=== PATIENT | female | born 1995 | race African-American/Black ===

== ENCOUNTER 2017-08-17 14:21 | Day surgery (SDC) | payer BC, OTHER ==
[2017-08-17 15:23] VITALS: BMI 33.2
--- NOTE | 2017-08-17 19:49 | PRG ---
DATE OF SERVICE: 08/17/2017 PRIMARY SPINNER FRAME: Mario Yuan DO CHIEF COMPLAINT: Abdominal pain. HISTORY OF PRESENT ILLNESS: The patient is a 22-year-old G3, P2 female with an intrauterine pregnanc y at 30 weeks' gestation who is presenting to Labor and Delivery with a 2-week history of upper abdom inal and upper bilateral pain that she describes as burning. The patient reports that this pain is w orse with trying to get out of bed, climbing stairs, getting in and out of car and standing on her fe et. She denies uterine contractions. She denies vaginal bleeding or leakage of fluid. She denies u rinary urgency or frequency. She denies nausea, vomiting, diarrhea, constipation. She reports that she has had a recent upper respiratory infection that has resolved. PAST MEDICAL HISTORY: 1. Asthma, for which she is on Singulair twice a day and albuterol daily. 2. 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 3. Hyperthyroidism, on methimazole. PAST SURGICAL HISTORY: Hip surgery and hip replacement. OB HISTORY: She has had 2 vaginal births at term, one was delivery of a twin gestation spontaneously , decreased to a stewart gestation with demise of one of the twins early in the . SOCIAL HISTORY: Denies drug, alcohol or tobacco use. OB LABS: Blood type is O negative, antibody screen is negative. RPR is nonreactive. HIV is nonreac tive. Hepatitis B surface antigen is nonreactive and rubella is immune. GC chlamydia was positive w ith a negative [id number]. Her one hour glucose was 94. She is GBS positive in her urine on initi al urine culture. REVIEW OF SYSTEMS: Per HPI. PHYSICAL EXAMINATION: VITAL SIGNS: Blood pressure 106/64, heart rate is 78, satting 98% on room air, temperature 97.8. GENERAL: She appears to be in no acute distress. She is alert and oriented, and cooperative and ple asant to interact with. HEENT: Normocephalic, atraumatic. CHEST: Clear to auscultation bilaterally. CARDIOVASCULAR: Heart has a regular rate and rhythm. ABDOMEN: Gravid, soft. She does have some tenderness with deviation of the uterus bilaterally. She also has some tenderness to palpation in the inguinal groin regions. EXTREMITIES: Nontender, nonedematous. GENITOURINARY: Has been deferred. heart tracing performed for abdominal pain, baseline is in the 150s with moderate long-term silvia iability with no accelerations, no decelerations. Tocometer does not show any contractions. A BPP w as performed for assessment and was noted to have 8/8. Cervical length is greater than 3 cm an d growth is appropriate. ASSESSMENT AND PLAN: The patient is a 29-year-old female with an intrauterine at 30 weeks and a day, who has been experiencing ligament related pain over the last couple of weeks. Reassuranc e has been given to the patient. She has an appointment on 08/[address] Yuan which she has been e ncouraged to keep. Patient is being discharged to home with labor precautions.
--- NOTE | 2017-08-17 20:37 | ULT ---
LIMITED OBSTETRICAL ULTRASOUND BIOPHYSICAL PROFILE 08/17/17 COMPARISON: None. HISTORY: 22-year-old female undergoing evaluation for size and dates/ growth. Nonreactive NST. TECHNIQUE: Multiplanar corea scale sonographic imaging of the gravid uterus obtained. A biophysical profile was p erformed. FINDINGS: A single intrauterine gestation is present with a vertex presentation. Cervical length is estimated a t 3.1 cm, which is an approximation secondary to shadowing from the head. heart rate is 147-149 beats per minute. anatomy was not fully assessed on this examination. Amniotic fluid in dex is 10.1 cm. Placenta is located anteriorly with no evidence for previa or abruption. BIOMETRY: BPD 7.7 cm 30 weeks, 6 days HC 28.4 cm 31 weeks, 1 day AC 26.1 cm 30 weeks, 2 days FL 5.6 cm 29 weeks, 4 days Average age based on ultrasound is 30 weeks, 4 days with estimated date of delivery on 10/22/17. Estimated weight is 1521 grams plus/minus 225 grams. The rate clerk passenger reports a 2 out of 2 score for tone, breathing, and movement. Amnio tic fluid scored 2 out of 2 for a normal biophysical profile of 8 out of 8. IMPRESSION: Single intrauterine gestation as detailed above. Normal 8 out of 8 biophysical profile. POS: [facility]
== END 2017-08-17 18:28 | disposition home or self-care (01) ==
LOC: L&D/OP 14:21
PROVIDERS: ATTEND Obstetrics & Gynecology
DX: O99.89 Other specified diseases and conditions complicating pregnancy, childbirth and the puerperium (principal); R10.10 Upper abdominal pain, unspecified; O99.52 Diseases of the respiratory system complicating childbirth; J45.909 Unspecified asthma, uncomplicated; O99.283 Endocrine, nutritional and metabolic diseases complicating pregnancy, third trimester; E03.9 Hypothyroidism, unspecified; Z3A.30 30 weeks gestation of pregnancy; Z79.899 Other long term (current) drug therapy; Z96.649 Presence of unspecified artificial hip joint
CPT/HCPCS: 76815; 76819

== ENCOUNTER 2017-08-24 18:18 | Day surgery (SDC) | payer BC, OTHER ==
[2017-08-24 19:17] VITALS: BP 124/67; TEMP 97.7; BMI 33.5
--- NOTE | 2017-08-24 19:37 | PDOC.LDHP ---
Labor and Delivery H&P Chief complaint: other (possible LOF) HPI: I was called by renetta from the [facility] clinic at 1715 that this patient had a positiveFFN today. Renetta was unsure if she was ruptured. Patient just arrived to L&D about 15 minutes ago and here for eval. She is a 22 year old at 31 weeks and 1 day with possible SROM at 0100. No CTX, no VB, good FM. No trauma. 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 Review of systems comdpleted and findings per HPI; no acute SOB. CX was closed at [facility] today (cervix checked after FFN). Current gestational age (weeks): 31 (1 day) Dating criteria: last menstrual period Grav: 4 Para: 2 Abnormal US findings: No Current medications: other (Asthma meds) Previous surgical history: other (Bilateral hip orthopedic surgery (left hip replacement, right pinned)) Allergies/Adverse Reactions: Allergies Allergy/AdvReac Type Severity Reaction Status Date / Time No Known Drug Allergies Allergy Verified 10/21/15 07:34 Social history: none - Physical Exam Vital signs reviewed and normal: yes General: NAD Heart: RRR Lungs: CTAB Abdomen: gravid Extremeties: no edema FHT: category 1 [place] contractions every: iritability - Vaginal Exam cm dilated: 0 (visually) Effacement: 0% - Assessment Threatened PTL at 31 weeks. HX Asthma and bilateral hip surgery. FFN positive at [facility]. - Plan Plan: observation in L&D (1. Sterile spec was negative by me 2. sent for record 3. FFN pos...no ctx now and no recent sex prior to FFN sample. Will check CX length. If CX normal, ok for outpatient follow up. CX visually closed by me and was closed at [facility]. 4. NST reactive 5. Clinically, may have vaginal jun...diflucan.)
[2017-08-24] MEDS ORDERED: Fluconazole 100 MG TAB PO SCH (20:00)
[2017-08-24 20:08] LABS: Amnisure Test No Membranes Rupture (No Rupture)
--- NOTE | 2017-08-24 20:18 | PDOC.EVN ---
Event Note - Event Note Event Note: FFN negative at 2015
--- NOTE | 2017-08-24 22:02 | ULT ---
ULTRASOUND OBSTETRICAL COMPLETE: Date: 08/24/17 Time: 8:30 p.m. HISTORY: 22-year-old female in 3rd trimester of . Maternal cervical length measurement requested. FINDINGS: number: [place]. lie: Cephalic. Maternal cervix: 2.5 cm. Placenta: Anterior. No placenta previa. Amniotic fluid volume: JOSEPH 14.5 cm. heart rate: 147 bpm The following anatomy is visualized, with no evidence of anomalies: Head, four chamber heart, stomach, kidneys, bladder, and spine. biometry: Head circumference (HC): 29.0 cm 32w 0d Biparietal diameter (BPD): 8.0 cm 32w 1d Abdominal circumference (AC): 28.2 cm 32w 2d Femur length (FL): 5,4 cm 28w 5d Average ultrasound age (AUA): 31w 2d Estimated date of delivery (RAVIN): 10/24/17 Last menstrual period (LMP): 01/18/17 Gestational age by LMP: 31w 1 d Estimated weight (EFW): 1709 g +/- 253 g (3 lb. 12 oz. +/- 9 oz.) IMPRESSION: 1. Live third trimester intrauterine gestation. 2. Estimated gestational age of 31 weeks, 3 days. 3. Cephalic lie. 4. Maternal cervix: 2.5 cm in length. DAGMAR Lewis POS: [facility]
[2017-08-25] MEDS ORDERED: Fluconazole 100 MG TAB PO SCH (09:00)
== END 2017-08-24 20:35 | disposition home or self-care (01) ==
LOC: L&D/OP 18:18
PROVIDERS: ATTEND Obstetrics & Gynecology
DX: O60.03 Preterm labor without delivery, third trimester (principal); O99.52 Diseases of the respiratory system complicating childbirth; J45.909 Unspecified asthma, uncomplicated; O99.283 Endocrine, nutritional and metabolic diseases complicating pregnancy, third trimester; Z3A.31 31 weeks gestation of pregnancy; Z79.899 Other long term (current) drug therapy; Z96.642 Presence of left artificial hip joint; Z96.7 Presence of other bone and tendon implants; Z34.93 Encounter for supervision of normal pregnancy, unspecified, third trimester
CPT/HCPCS: 76815; 82731; 84112

== ENCOUNTER 2017-09-15 19:02 | Inpatient (IN) | payer BC, OTHER ==
[2017-09-15 19:41] VITALS: BMI 35.3
[2017-09-15] MEDS ORDERED: LR / Pitocin 40 units/1000 ml 1,000 ML IV PRN (20:22)
[2017-09-15] MEDS ORDERED: Promethazine HCl 25 MG/ML VIAL IM PRN (20:22)
[2017-09-15] MEDS ORDERED: Lidocaine 1% (PF) 30 ML VIAL SC PRN (20:22)
[2017-09-15] MEDS ORDERED: Lactated Ringer's 1,000 ML IV SCH (20:30)
--- NOTE | 2017-09-15 21:29 | HP ---
DATE OF SERVICE: 09/15/2017 REASON FOR ADMISSION: Contractions at 34 to 35 weeks gestation. HISTORY OF PRESENT ILLNESS: Ms. Newell is a 22-year-old 4, para 2, AB 1 at 34 to 35 weeks who is seen at [facility] by Dr. Yuan and Dr. Arellano. She presents complaining of day or two of cont ractions. She denies rupture of membranes. She denies bleeding. Of note, she was observed in labor and delivery back in mid August with a positive fibronectin. OB AND BALLET DANCER HISTORY: G4, P2, previous history of disappearing twin, spontaneous vaginal deliveries x2 . No other complications. PAST MEDICAL HISTORY: Significant for hyperthyroidism and asthma. PAST SURGICAL HISTORY: Bilateral hip surgery. ALLERGIES: Denies. MEDICATIONS: Methimazole 10 mg p.o. q. day, vitamins. SOCIAL HISTORY: Denies tobacco, alcohol, or IV drug use. FAMILY HISTORY: Noncontributory. REVIEW OF SYSTEMS: Noncontributory. PHYSICAL EXAMINATION: GENERAL: Black female, in no acute distress. VITAL SIGNS: Afebrile, blood pressure 100/72, respirations 18, pulse 85. HEENT: Within normal limits. LUNGS: Clear to auscultation bilaterally. HEART: Regular rhythm. BREASTS: No masses bilaterally. ABDOMEN: Soft, nontender. Fundal height 34 cm. FHTs 130s to 140s. PELVIC: Vulva without lesions. Vagina without discharge. Cervix is fingertip, 50, -2, cephalic. EXTREMITIES: Without clubbing, cyanosis or edema. LABORATORY DATA: Positive fibronectin 2 weeks ago, we will not repeat at this time. Admit lab s, TSH, and free T4 are pending. HEART RATE TRACING: heart rate tracing reveals occasional uterine irritability versus co ntractions with a category 1 heart rate tracing. IMPRESSION: Possible early labor with a history of a positive fibronectin 2 weeks ago. The patient did not receive corticosteroids at that time. PLAN: Admission, corticosteroids, betamethasone 12 mg q.24 hours x2 doses, IV fluids, chec k thyroid functions, continue methimazole, obtain limited ultrasound study as patient had ultra sound on 08/24/2017, which was size equal to dates with an RAVIN of 10/24/2017, at that time, an EFW of 1709. Cervical length was 2.5 at that time.
[2017-09-15 21:36] LABS: Hemoglobin 9.8 g/dL (12.0-16.0); Mean Corpuscular HGB CONC 33.1 g/dL (32.0-36.0); Mean Corpuscular Hemoglobin 28.2 pg (27.0-31.0); Mean Corpuscular Volume 85.2 fl (81.0-99.0); Mean Platelet Volume 7.8 fL (7.4-10.4); Platelet Count 275 thou/uL (130-400); RBC Distribution Width 13.5 % (11.5-14.5); Red Blood Cell (RBC) Count 3.49 mill/uL (4.20-5.40); White Blood Cell (WBC) Count 9.7 thou/uL (4.8-10.8)
[2017-09-15] MEDS: Betamet Acet/Betamet Na Ph 30 MG/5 ML VIAL IM SCH (21:42)
[2017-09-15] MEDS: Methimazole 10 MG TAB PO SCH (21:42)
[2017-09-15] MEDS: Lactated Ringer's 1,000 ML IV SCH (21:54)
[2017-09-15 22:13] LABS: Syphilis Antibody Nonreactive (Nonreactive); Syphilis Antibody Index 0.04 S/CO (<1.00 Non-Reactive)
[2017-09-15 22:14] LABS: Free T4 (Free Thyroxine) 0.96 ng/dL (0.70-1.48)
[2017-09-15 22:15] LABS: Thyroid Stimulating Hormone 0.0103 uIU/mL (0.35-4.94)
--- NOTE | 2017-09-15 22:26 | ULT ---
ULTRASOUND OB FOLLOWUP 09/15/17 HISTORY: Questionable labor. Evaluate weight and position. COMPARISON: Ultrasound OB limited 08/24/17. TECHNIQUE: Real time corea scale and color evaluation of the gravid uterus. FINDINGS: Placenta is anterior. A single viable intrauterine with average ultrasound age 34 week, 5 d ay. Estimated delivery of 10/22/17. Estimated weight is 5 lb. 7 oz, 54th percentile. The position is vertex and the placenta is anterior. Heart rate is 130 beats per minute. Amniotic flu id index is 19.1 cm. Biparietal diameter: 34 week, 4 day, 8.59 cm. Head circumference: 35 week, 4 day, 31.69 cm. Abdominal circumference: 35 week, 0 day, 31.04 cm. Femur length: 33 week, 3 day, 6.49 cm. The sacrum, spine, diaphragm, kidneys, four chamber heart, stomach, are normal. IMPRESSION: Single viable intrauterine with estimated date of delivery of 10/22/17. The weight is 5 lb. 7 oz, 54th percentile. The fetus is in vertex position. POS: [facility]
[2017-09-16 01:10] LABS: HBSAg Index 0.23 S/CO (0-0.99); HIV (1/2) Antibody/Antigen Non-Reactive (NonReactive); HIV 1/2 INDEX 0.09 S/CO (<1.00); Hep B Surf Ag Non-Reactive S/CO (NonReactive)
[2017-09-16] MEDS: Ondansetron HCl/PF 4 MG/2 ML Vial IVP PRN ×2 (03:05→10:14)
[2017-09-16] MEDS: Lactated Ringer's 1,000 ML IV SCH ×2 (04:30→14:01)
--- NOTE | 2017-09-16 07:38 | PRG ---
DATE OF SERVICE: 09/16/2017 TIME OF SERVICE: 0700 SUBJECTIVE: The patient is resting comfortably. Vital signs are stable. Contractions have disappea red. Ultrasound was reviewed, which revealed a fetus with cephalic presentation, 5 pounds 7 ounces e stimated weight. No gross abnormalities were noted on follow up ultrasound. LABORATORY DATA: Revealed a low TSH, but a normal Free T4, otherwise unremarkable. IMPRESSION: cervical dilatation at 35 weeks gestation without evidence of labor stat us post first dose of betamethasone, second of betamethasone to be administered approximately 2029 ho urs on 09/16/2017. PLAN: Continue observation status. Plan to discharge home after second dose of betamethasone if no change in patient's condition.
[2017-09-16] MEDS: Methimazole 10 MG TAB PO SCH (09:48)
--- NOTE | 2017-09-16 12:14 | PDOC.LDPN ---
Labor & Delivery Progress Note - Objective Vital signs reviewed and normal: yes General: NAD Uterine fundus: non tender [place] contractions every: only irritability - Assessment (1) Threatened labor, antepartum Code(s): O47.00 - FALSE LABOR BEFORE 37 COMPLETED WEEKS OF GEST, UNSP TRI Current Visit: Yes Status: Acute Plan: continue plan of care (Patient recieving celestone for FLM. Was 1 cm on admit. AME45-16 weeks. HX FFN pos 2 weeks age. Consider outpatient follow up after second Celestone as no evidence true progressive PTL at this time. )
--- NOTE | 2017-09-16 15:37 | PDOC.LDPN ---
Labor & Delivery Progress Note - Objective Vital signs reviewed and normal: yes General: NAD Uterine fundus: non tender - Assessment (1) Threatened labor, antepartum Code(s): O47.00 - FALSE LABOR BEFORE 37 COMPLETED WEEKS OF GEST, UNSP TRI Current Visit: Yes Status: Acute Plan: continue plan of care ([place]ashaestone #2 this PM (2099), likely home tomorrow AM. No evidence true PTL at this time. )
[2017-09-16] MEDS: Betamet Acet/Betamet Na Ph 30 MG/5 ML VIAL IM SCH (21:16)
--- NOTE | 2017-09-17 06:44 | PDOC.LDPN ---
Labor & Delivery Progress Note - Objective Vital signs reviewed and normal: yes General: NAD Uterine fundus: non tender - Assessment (1) Threatened labor, antepartum Code(s): O47.00 - FALSE LABOR BEFORE 37 COMPLETED WEEKS OF GEST, UNSP TRI Current Visit: Yes Status: Acute -: S/P celestone X2. No evidence true labor. OK for outpatient care. EGA 34 wks 4 days.
--- NOTE | 2017-09-17 06:46 | PDOC.EVN ---
Event Note - Event Note Event Note: Discharge Note: Admit: 09/16/17 Discharge: 09/17/17 Diagnoses: Threatened labor at 34 weeks Procedures: NST Celestone administration for FLM Patient admitted by Dr villanueva on 09/16/17 at 1 cm with threatened labor, HX FFN positive 2 weeks ago. Admitted for celestone 12mg IM x2 (24 hours apart) . Home on 09/17/17 with DX of arrested threatened PTL. Cat 1 FHTs. Patient to follow up in 1 week.
[2017-09-17 08:00] VITALS: TEMP 98.4
[2017-09-17 08:02] VITALS: BP 118/60
== END 2017-09-17 08:05 | disposition home health service (06) | DRG 778 ==
LOC: L&D/OP 19:02 → L&D 09-16 05:09
PROVIDERS: ADMIT Obstetrics & Gynecology; ATTEND Obstetrics & Gynecology
PROC: 4A0HXCZ Measurement of Products of Conception, Cardiac Rate, External Approach (ICD-10-PCS; principal; 2017-09-16)
DX: O60.03 Preterm labor without delivery, third trimester (principal); O36.8130 Decreased fetal movements, third trimester, not applicable or unspecified; Z3A.34 34 weeks gestation of pregnancy
CPT/HCPCS: 76816; 84439; 84443; 85027; 86780; 87340; 87389; 99285; J0702; J2405

== ENCOUNTER 2017-10-14 18:59 | Day surgery (SDC) | payer OTHER, BC ==
[2017-10-14 19:26] VITALS: BP 126/77; TEMP 98.6; BMI 35.5
--- NOTE | 2017-10-14 23:59 | SS ---
DATE OF EVALUATION: 10/24/2017 REGULAR OB: Kathleen Ching D.O. CHIEF COMPLAINT: Contractions. HISTORY OF PRESENT ILLNESS: Ms. Newell is a 22-year-old G4, P2-0-1-2 with an estimated date of confinement of 10/25/2017 who presents complaining of intermittent contractions since earlier this evening. She denies ruptured membranes or vaginal bleeding. She has been followed at [facility] by Dr. Ching and is scheduled for an induction on . PAST OBSTETRICAL HISTORY: Remarkable for 2 vaginal deliveries. PAST MEDICAL HISTORY: Unremarkable. PAST SURGICAL HISTORY: Includes a surgery to her hips. CURRENT MEDICATIONS: vitamins. SOCIAL HISTORY: Denies tobacco or alcohol use. REVIEW OF SYSTEMS: Denies fever, chills, ruptured membranes or vaginal bleeding. PHYSICAL EXAMINATION: Denies nausea, vomiting, fever, chills, ruptured membranes or vaginal bleeding. PHYSICAL EXAMINATION: VITAL SIGNS: Stable. She is afebrile. ABDOMEN: Soft, gravid and nontender. PELVIC: Shows the cervix to be 3 cm dilated with the presenting part high. The patient states that this was her exam in clinic last week. heart rate tracing is stable. Intermittent contractions are seen. Patient's observed over 2 hours and there is no cervical change and her contractions are noted to space out. ASSESSMENT: 1. A 38-1/2 week intrauterine . 2. No evidence of active labor at this time, no cervical change. PLAN: The patient was sent home with precautions. She understands that she is to return quickly should her contractions get closer together. She was given complete labor precautions and was sent home in good condition. JOSEPHINE
== END 2017-10-14 21:40 | disposition home or self-care (01) ==
LOC: L&D/OP 18:59
PROVIDERS: ATTEND Obstetrics & Gynecology
DX: O47.1 False labor at or after 37 completed weeks of gestation (principal); Z3A.38 38 weeks gestation of pregnancy; Z79.899 Other long term (current) drug therapy; Z98.890 Other specified postprocedural states
CPT/HCPCS: 99283

== ENCOUNTER 2017-10-18 06:18 | Inpatient (IN) | payer BC, OTHER ==
[2017-10-18] MEDS: Lactated Ringer's 1,000 ML IV SCH ×2 (07:05→12:42)
[2017-10-18 07:12] VITALS: BMI 35.5
[2017-10-18] MEDS ORDERED: HYDROcodone/Acetaminophen 5/325 mg Tablet PO PRN (07:13)
[2017-10-18] MEDS ORDERED: Promethazine HCl 25 MG/ML VIAL IM PRN ×2 (07:13→10:50)
[2017-10-18] MEDS ORDERED: Misoprostol 200 MCG TAB PR PRN (07:13)
[2017-10-18] MEDS ORDERED: Acetaminophen 500 MG TAB PO PRN (07:13)
[2017-10-18] MEDS ORDERED: Ondansetron HCl/PF 4 MG/2 ML Vial IVP PRN ×2 (07:13→10:50)
[2017-10-18] MEDS ORDERED: Lidocaine 1% (PF) 30 ML VIAL SC PRN (07:13)
[2017-10-18] MEDS ORDERED: Methylergonovine 0.2 MG/ML VIAL IM PRN (07:13)
[2017-10-18] MEDS ORDERED: Ibuprofen 800 MG TAB PO PRN (07:13)
[2017-10-18] MEDS ORDERED: LR 500 ML/Oxytocin 10 units 500 ML IV SCH (07:15)
[2017-10-18] MEDS ORDERED: Penicillin G Potassium 5 MILL.UNITS in Sodium Chloride 0.9% 100 ML IVPB SCH (07:15)
[2017-10-18 07:25] LABS: Hemoglobin 10.3 g/dL (12.0-16.0); Mean Corpuscular HGB CONC 33.5 g/dL (32.0-36.0); Mean Corpuscular Hemoglobin 27.7 pg (27.0-31.0); Mean Corpuscular Volume 82.7 fl (81.0-99.0); Platelet Count 270 thou/uL (130-400); RBC Distribution Width 14.3 % (11.5-14.5); Red Blood Cell (RBC) Count 3.71 mill/uL (4.20-5.40); White Blood Cell (WBC) Count 8.2 thou/uL (4.8-10.8)
[2017-10-18 08:04] LABS: Syphilis Antibody Nonreactive (Nonreactive); Syphilis Antibody Index 0.04 S/CO (<1.00 Non-Reactive)
[2017-10-18 08:05] LABS: HBSAg Index 0.23 S/CO (0-0.99); HIV (1/2) Antibody/Antigen Non-Reactive (NonReactive); Hep B Surf Ag Non-Reactive S/CO (NonReactive)
--- NOTE | 2017-10-18 08:20 | PDOC.LDHP ---
Labor and Delivery H&P Chief complaint: scheduled induction HPI: 22 yo @ 39wod by 11 week sono who presents for elective IOL. Antepartum course complicated by controlled hyperthyroidism on methimizole and controlled asthma. GBS+. Current gestational age (weeks): 39 Due date: 10/25/17 Dating criteria: first trimester ultrasound Grav: 4 Para: 2 OB History Details: 2 SVDs, 1 SAB Current complications: none, other Abnormal US findings: No Past Medical History: Hyperthyroidism, asthma, arthritis Current medications: pre-jania vitamins, other (methimizole 5 mg BID, albuterol PRN) Previous surgical history: other (left hip replacement) Allergies/Adverse Reactions: Allergies Allergy/AdvReac Type Severity Reaction Status Date / Time No Known Drug Allergies Allergy Verified 10/14/17 19:19 Social history: none - Physical Exam Vital signs reviewed and normal: yes General: NAD Heart: RRR Lungs: nonlabored breathing Abdomen: gravid Extremeties: no edema FHT: category 1 (140s, mod silvia, +accels, no decels) [place] contractions every: irregular - Vaginal Exam cm dilated: 3 Effacement: 50% Station: -2 - OB Labs Blood type: O RH: negative Antibody Screen: negative HIV: negative RPR: negative HEPSAg: negative 1 hour GCT: negative GBS: positive Urine drug screen: not done Rubella: immune Additional Labs: SSQ neg TSH 0.19, T4 wnl + CT and trichomonas (treated) - Assessment 22 yo @ 39w0d Elective IOL Hyperthyroidism Asthma GBS+ H/O left hip replacement - Plan Plan: admit to L&D, GBS antibiotic prophylaxis, informed consent obtained, anesthesia consult for pain management -: Start pitocin for induction Continue Methimizole
[2017-10-18] MEDS: Penicillin G 2.5 MILL.units 2.5 MILL.UNITS in Premix Bag 1 BAG IVPB SCH ×3 (09:54→16:03)
[2017-10-18] MEDS ORDERED: Bupivacaine 0.5% 20 ML, Fentanyl 400 MCG in Sodium Chloride 0.9% 72 ML EPIDURAL SCH ×2 (10:00→15:45)
[2017-10-18] MEDS ORDERED: Eucerin (Mineral Oil/Petrolatum,White) 30 gm Jar TOP PRN (10:50)
[2017-10-18] MEDS ORDERED: ePHEDrine/0.9% NaCl/PF SYRINGE 50 mg/10 ml SLOW IVP PRN (10:50)
[2017-10-18] MEDS ORDERED: Lactated Ringer's 500 ML IV PRN (10:50)
[2017-10-18] MEDS ORDERED: diphenhydrAMINE 50 MG/ML VIAL IVP PRN (10:50)
[2017-10-18] MEDS ORDERED: Acetaminophen 325 MG TAB PO PRN (10:50)
[2017-10-18] MEDS ORDERED: Naloxone HCl 0.4 mg/ml Vial IVP PRN ×2 (10:50)
[2017-10-18] MEDS ORDERED: Fentanyl 4mcg/Marcaine 0.1% Cassette 100 ML EPIDURAL SCH (11:00)
[2017-10-18] MEDS ORDERED: Communication Order-Pharmacy FS SCH (11:00)
--- NOTE | 2017-10-18 12:38 | PDOC.LDPN ---
Labor & Delivery Progress Note - Subjective Subjective: comfortable - Objective Vital signs reviewed and normal: yes General: NAD Uterine fundus: non tender Dilation: 4 Effacement: 50% Station: -2 FHT: category 2 (140s, mod silvia, +accels, occasional variable decel ) [place] contractions every: q3 min AROM: clear fluid - Assessment (1) 39 weeks gestation of Code(s): Z3A.39 - 39 WEEKS GESTATION OF Current Visit: Yes Status : Acute (2) Elective induction of labor planned Code(s): BZQ0080 - Current Visit: Yes Status: Acute (3) Hyperthyroidism Code(s): E05.90 - THYROTOXICOSIS, UNSP WITHOUT THYROTOXIC CRISIS OR STORM Current Visit: Yes Status: Acute (4) Group B streptococcal carriage complicating Code(s): O99.820 - STREPTOCOCCUS B CARRIER STATE COMPLICATING Current Visit: Yes Status: Acute Plan: continue plan of care, pitocin for augmentation
--- NOTE | 2017-10-18 17:05 | PDOC.LDPN ---
Labor & Delivery Progress Note - Subjective Subjective: comfortable - Objective Vital signs reviewed and normal: yes General: NAD Uterine fundus: non tender Dilation: 5 Effacement: 90% Station: -2 FHT: category 1 (120s, mod silvia, +accels, no decels ) [place] contractions every: q2-3 min - Assessment (1) 39 weeks gestation of Code(s): Z3A.39 - 39 WEEKS GESTATION OF Current Visit: Yes Status : Acute (2) Elective induction of labor planned Code(s): QGW9696 - Current Visit: Yes Status: Acute (3) Hyperthyroidism Code(s): E05.90 - THYROTOXICOSIS, UNSP WITHOUT THYROTOXIC CRISIS OR STORM Current Visit: Yes Status: Acute (4) Group B streptococcal carriage complicating Code(s): O99.820 - STREPTOCOCCUS B CARRIER STATE COMPLICATING Current Visit: Yes Status: Acute -: Continue to increase pitocin, inadequate MVUs for the last few hours. IUPC in place Continue GBS PPX
[2017-10-18] MEDS ORDERED: LR / Pitocin 40 units/1000 ml 1,000 ML ONE (18:36)
[2017-10-18] MEDS ORDERED: Lidocaine 1% (PF) 30 ML VIAL ONE (18:36)
[2017-10-18] MEDS: LR / Pitocin 40 units/1000 ml 1,000 ML IV PRN ×2 (19:30→20:43)
--- NOTE | 2017-10-18 19:58 | PDOC.OPDEL ---
OB Operative/Delivery Note Delivery Dr/Surgeon: Kathleen Ching DO Pre-Delivery Diagnosis: elective induction Procedure/Post Delivery Dx: spontaneous vaginal delivery Weeks gestation: 39 Anesthesia: epidural - Findings A Sex: female - 1 min: 9 - 5 min: 9 - Additional Findings/Plan Placenta delivered: spontaneous Repaired Obstetrical Laceration: other (superficial periurethral and hymenal laceration) Estimated blood loss: 250 cc Post delivery plan: routine recovery
[2017-10-18] MEDS: Methimazole 5 MG TAB PO SCH (20:43)
[2017-10-18] MEDS ORDERED: Bisacodyl 10 MG SUPP PR PRN (21:58)
[2017-10-18] MEDS ORDERED: traMADol HCl 50 MG TAB PO PRN (21:58)
[2017-10-18] MEDS ORDERED: LR / Pitocin 40 units/1000 ml 1,000 ML IV SCH (21:58)
[2017-10-18] MEDS ORDERED: Milk Of Magnesia 30 ML UDCUP PO PRN (21:58)
[2017-10-18] MEDS ORDERED: diphenhydrAMINE 25 MG CAP PO PRN (21:58)
[2017-10-18] MEDS ORDERED: Benzocaine/Menthol 20-0.5% 60 ML CAN TOP PRN (21:58)
[2017-10-18] MEDS ORDERED: Docusate Calcium (SURFAK) 240 MG CAP PO SCH (22:15)
[2017-10-18] MEDS: Ibuprofen 800 MG TAB PO SCH (22:39)
[2017-10-18] MEDS: Docusate Calcium (SURFAK) 240 MG CAP PO SCH (22:39)
[2017-10-19 05:28] LABS: Hemoglobin 9.1 g/dL (12.0-16.0); Mean Corpuscular Volume 84.3 fl (81.0-99.0); Mean Platelet Volume 8.2 fL (7.4-10.4); Platelet Count 240 thou/uL (130-400); RBC Distribution Width 14.2 % (11.5-14.5); Red Blood Cell (RBC) Count 3.36 mill/uL (4.20-5.40); White Blood Cell (WBC) Count 8.9 thou/uL (4.8-10.8)
[2017-10-19] MEDS: Ibuprofen 800 MG TAB PO SCH ×3 (06:13→21:26)
--- NOTE | 2017-10-19 07:23 | PDOC.PP ---
Post Progress Note Post Day #: 1 Subjective: No complaints. Minimal lochia. Pain controlled. transferred to NICU due to hyperbilirubinemia. Formula feeding. PO intake tolerated: yes Flatus: yes Ambulation: yes Vital Signs (12 hours) Temp Pulse Resp BP BP Pulse Ox 10/19/17 05:00 97.6 F 81 18 114/61 10/19/17 00:30 97.9 F 88 20 117/61 10/18/17 22:50 98.0 F 78 20 122/66 10/18/17 21:52 97.9 F 80 18 10/18/17 21:50 97.9 F 80 18 120/64 99 Weight Weight 220 lb - Physical Examination General: NAD Cardiovascular: RRR Respiratory: non-labored breathing Abdominal: no distention, appropriately TTP Fundus firm & at: below umbilicus Extremities: negative homans (B) Neurological: no gross focal deficits Psychiatric: A&Ox3 Result Diagrams: 10/19/17 04:56 Additional Labs: Post Labs Blood Type O NEGATIVE 10/18/17 07:05 Hep Bs Antigen Non-Reactive S/CO (NonReactive) 10/18/17 07:05 (1) 39 weeks gestation of Code(s): Z3A.39 - 39 WEEKS GESTATION OF Status: Resolved (2) Elective induction of labor planned Code(s): [id number] - Status: Resolved (3) Hyperthyroidism Code(s): E05.90 - THYROTOXICOSIS, UNSP WITHOUT THYROTOXIC CRISIS OR STORM Status: Acute (4) Group B streptococcal carriage complicating Code(s): O99.820 - STREPTOCOCCUS B CARRIER STATE COMPLICATING Status : Resolved (5) Anemia Code(s): D64.9 - ANEMIA, UNSPECIFIED Status: Acute Qualifiers: Anemia type: iron deficiency (6) Vaginal delivery Code(s): O80 - ENCOUNTER FOR FULL-TERM UNCOMPLICATED DELIVERY Status: Acute - Assessment/Plan Doing well post . transferred to NICU for phototherapy and will require stay overnight. Plan for d/c home tomorrow. Continue Methimizole
[2017-10-19] MEDS: Prenatal Vitamin 1 TAB PO SCH (08:10)
[2017-10-19] MEDS: Docusate Calcium (SURFAK) 240 MG CAP PO SCH ×2 (08:10→21:26)
[2017-10-19] MEDS: Methimazole 5 MG TAB PO SCH ×2 (08:10→21:27)
[2017-10-19] MEDS: Ferrous Sulfate 325 MG TAB PO SCH ×2 (08:10→17:27)
[2017-10-19] MEDS: Penicillin G 2.5 MILL.units 2.5 MILL.UNITS in Premix Bag 1 BAG IVPB SCH (09:55)
[2017-10-19 21:02] VITALS: TEMP 98.4
[2017-10-20] MEDS: Ibuprofen 800 MG TAB PO SCH ×2 (05:52→14:07)
--- NOTE | 2017-10-20 08:39 | DIS ---
DATE OF ADMISSION: 10/18/2017 DATE OF DISCHARGE: 10/20/2017 ADMITTING DIAGNOSES: Intrauterine at 39 weeks for elective induction of labor, complicated by hyperthyroidism and asthma. DISCHARGE DIAGNOSES: Intrauterine at 39 weeks for elective induction of labor, complicated by hyperthyroidism and asthma. PROCEDURE: Term spontaneous vaginal delivery. CONSULTATIONS: None. HOSPITAL COURSE: The patient is a 22-year-old female, who presented at 39 weeks gestation for electi ve induction of labor, which resulted in a term spontaneous vaginal delivery. Her course has been uncomplicated. She reports she is tolerating p.o., voiding on her own, having good pain con trol and decreased lochia. Her most recent vitals signs, blood pressure is 112/65, temperature 98.4, pulse of 85, respiratory rate of 16. In general, she appears to be in no acute distress. She is al ert and oriented, and cooperative and pleasant to interact with. Fundus is firm. Extremities are no ntender and nonedematous. The patient will be discharged to home with ibuprofen p.r.n. for pain control. She has instructions to follow up with Dr. Ching in 6 weeks. She has instructions to seek medical attention sooner if sh e experiences increasing pain or bleeding or fever.
[2017-10-20 09:09] VITALS: BP 107/67
[2017-10-20] MEDS: Docusate Calcium (SURFAK) 240 MG CAP PO SCH (09:31)
[2017-10-20] MEDS: Prenatal Vitamin 1 TAB PO SCH (09:31)
[2017-10-20] MEDS: Ferrous Sulfate 325 MG TAB PO SCH (09:31)
[2017-10-20] MEDS: Methimazole 5 MG TAB PO SCH (09:32)
== END 2017-10-20 16:44 | disposition home or self-care (01) | DRG 775 ==
LOC: L&D 06:18 → UNDOADMIN 06:18 → 3SW 21:50
PROVIDERS: ADMIT Obstetrics & Gynecology; ATTEND Obstetrics & Gynecology
PROC: 10E0XZZ Delivery of Products of Conception, External Approach (ICD-10-PCS; principal; 2017-10-19)
DX: O99.284 Endocrine, nutritional and metabolic diseases complicating childbirth (principal); D50.8 Other iron deficiency anemias; O70.0 First degree perineal laceration during delivery; Z3A.39 39 weeks gestation of pregnancy; Z37.0 Single live birth; O99.824 Streptococcus B carrier state complicating childbirth; O99.02 Anemia complicating childbirth; J45.909 Unspecified asthma, uncomplicated; Z96.649 Presence of unspecified artificial hip joint
CPT/HCPCS: 36415; 51702; 85027; 85461; 86780; 86850; 86900; 86901; 87340; 87389; 90384; 96372; J2001; J2405; J2540; J2550; J3010; J3490; J7050; J7120

== ENCOUNTER 2018-11-12 12:57 | Outpatient (CLI) | payer BC, OTHER ==
--- NOTE | 2018-11-12 14:17 | ULT ---
OB ULTRASOUND COMPLETE GREATER THAN 14 WEEKS: HISTORY: High risk in the third trimester, anatomy. FINDINGS: Single viable intrauterine fetus is noted in cephalic presentation. Cervical length equals 3.2 cm. heart rate 160 b.p.m. Placenta is posterior. Amniotic fluid is within normal limits. The visualized brain, 4-chambert heart, 3-vessel cord, stomach, bladder, kidneys, spine, and ex tremity regions are unremarkable. Biometry: BPD 5.6 cm-22 weeks 0 days Head circumference 21.3 cm-23 weeks 3 days Abdominal circumference 19.6 cm-24 weeks 2 days Femur length 4 cm-22 weeks 5 days IMPRESSION: Single viable intrauterine fetus at 23 weeks 1 day with an estimated date of confinement of 03/10/2019. Estimated weight 609 gm. POS: [facility]
== END 2018-11-12 12:58 | disposition home or self-care (01) ==
LOC: SCSULT 12:57
PROVIDERS: ATTEND Nurse Practitioner
DX: O09.93 Supervision of high risk pregnancy, unspecified, third trimester (principal)
CPT/HCPCS: 76805

== ENCOUNTER 2018-12-13 14:16 | Outpatient (CLI) | payer BC, MEDICAID ==
--- NOTE | 2018-12-13 15:15 | ULT ---
OB ULTRASOUND: COMPARISON: 11/12/2018. HISTORY: female. Evaluate size, dates, growth, and JOSEPH. TECHNIQUE: Multiplanar, corea scale, and color Doppler images were obtained in a limited ultrasound. FINDINGS: There is a single live intrauterine with a heart rate of 141 b.p.m. Estimated weight is 1,108 gm, which is the 25th percentile. Average of the fetus based off today's examination is 27 weeks 4 days. The following measurements were taken and dates based off these measurements are as f romeo. BPD 6.85 cm, 27 weeks 4 days HC 24.95 cm, 27 weeks 1 day AC 23.35 cm, 27 weeks 5 days FL 5.22 cm, 27 weeks 6 days JOSEPH 16.4 cm, which is normal. The placenta is posterior in location without evidence of placenta pre via. The cervix is not able to be seen secondary to the head which is in cephalic presentation . IMPRESSION: Single live intrauterine with estimated age of 27 weeks 4 days. POS: [facility]
== END 2018-12-13 14:17 | disposition home or self-care (01) ==
LOC: SCSULT 14:16
PROVIDERS: ATTEND Obstetrics & Gynecology
DX: Z34.83 Encounter for supervision of other normal pregnancy, third trimester (principal); Z3A.27 27 weeks gestation of pregnancy
CPT/HCPCS: 76816

== ENCOUNTER 2019-02-17 11:56 | Day surgery (SDC) | payer BC, OTHER ==
[2019-02-17 12:49] VITALS: BMI 41.0
--- NOTE | 2019-02-17 14:26 | SS ---
DATE OF ADMISSION: 02/17/2019 DATE OF DISCHARGE: 02/17/2019 TIME OF SERVICE: 1315. PRESENTING COMPLAINT: Contractions and abdominal pain at 38 weeks. HISTORY OF PRESENT ILLNESS: Ms. Paola Newell is a 23-year-old 4, para 3, with an EDC of 03/01. She is O negative, antibody negative, Pap negative, rubella immune, VDRL nonreactive, group B strep not available. She complains of abdominal pain for about 6 hours. She denies rupture of membranes or bleeding. She reports an active fetus. [employer]ACHINE HISTORY: As noted. PAST SURGICAL HISTORY: Denies. PAST MEDICAL HISTORY: Hyperthyroidism. ALLERGIES: NONE. MEDICATIONS: 1. Methimazole. 2. Albuterol. 3. Advair. 4. vitamins. SOCIAL HISTORY: Denies tobacco, alcohol, or drug use. FAMILY HISTORY: Noncontributory. REVIEW OF SYSTEMS: Noncontributory. PHYSICAL EXAMINATION: GENERAL: White female. VITAL SIGNS: Blood pressure 131/81, pulse 86, respirations 20, and temperature 98.3. HEENT: Within normal limits. LUNGS: Clear to auscultation bilaterally. HEART: Regular rate and rhythm. ABDOMEN: Soft and nontender without palpable contractions. Vulva without lesions. Vaginal exam by RN reveals cervix is 125 and -2 cephalic. EXTREMITIES: Without clubbing, cyanosis, or edema. LABORATORY DATA: monitoring was carried out for greater than 30 minutes, which revealed a category 1 tracing. No decelerations. Positive accelerations. No significant contractions noted. IMPRESSION: Discomforts of . No evidence of active labor. PLAN: Discharge home. Keep scheduled followup with Dr. Neha Garcia. Job ID: [id number]
== END 2019-02-17 13:36 | disposition home health service (06) ==
LOC: L&D/OP 11:56
PROVIDERS: ATTEND Obstetrics & Gynecology
DX: O26.893 Other specified pregnancy related conditions, third trimester (principal); R10.9 Unspecified abdominal pain; O99.283 Endocrine, nutritional and metabolic diseases complicating pregnancy, third trimester; E05.90 Thyrotoxicosis, unspecified without thyrotoxic crisis or storm; Z3A.38 38 weeks gestation of pregnancy; Z79.899 Other long term (current) drug therapy
CPT/HCPCS: 99283

== ENCOUNTER 2019-02-24 05:30 | Inpatient (IN) | payer BC, OTHER ==
[~2019-02-24 05:30] MED LIST: Butorphanol Tartrate 1 MG/ML VIAL SLOW IVP PRN; Docusate 100 MG CAP PO PRN; HYDROcodone/Acetaminophen 5/325 mg Tablet PO PRN; Ibuprofen 800 MG TAB PO PRN; Lidocaine 1% (PF) 30 ML VIAL SC PRN; NS / Oxytocin 40 units/1000ml 1,000 ML IV PRN; Ondansetron PF 4 MG/2 ML Vial IVP PRN; Promethazine HCl 25 MG/ML VIAL IM PRN; Zolpidem Tartrate 5 MG TAB PO PRN
[2019-02-24 06:40] VITALS: BMI 40.8
[2019-02-24] MEDS: Lactated Ringer's 1,000 ML IV SCH ×2 (06:50→15:46)
[2019-02-24] MEDS: NS w/ Oxytocin 10 units 500 ML IV SCH ×2 (07:03→17:57)
[2019-02-24 07:04] LABS: Hemoglobin 10.1 g/dL (12.0-16.0); Mean Corpuscular HGB CONC 32.8 g/dL (32.0-36.0); Mean Corpuscular Hemoglobin 27.4 pg (27.0-31.0); Mean Corpuscular Volume 83.6 fL (78.0-98.0); Platelet Count 240 thou/uL (130-400); RBC Distribution Width 13.8 % (11.5-14.5); Red Blood Cell (RBC) Count 3.69 mill/uL (4.20-5.40); White Blood Cell (WBC) Count 8.9 thou/uL (4.8-10.8)
[2019-02-24] MEDS ORDERED: Penicillin G Potassium 5 MILL.UNITS VIAL ONE (07:14)
[2019-02-24 07:42] LABS: HBSAg Index 0.35 S/CO (0-0.99); Hep B Surf Ag Non-Reactive S/CO (NonReactive); Syphilis Antibody Nonreactive (Nonreactive); Syphilis Antibody Index 0.04 S/CO (<1.00 Non-Reactive)
[2019-02-24] MEDS ORDERED: Penicillin G Potassium 5 MILL.UNITS in Sodium Chloride 0.9% 100 ML IVPB SCH (08:45)
[2019-02-24] MEDS: Penicillin G 2.5 MILL.units 2.5 MILL.UNITS in Premix Bag 1 BAG IVPB SCH ×3 (11:12→19:50)
[2019-02-24] MEDS ORDERED: Fentanyl 4 mcg/Bup 0.1% Cadd 100 ML ONE (14:40)
[2019-02-24] MEDS ORDERED: Bupivacaine/Epinephrine 0.25% 30 ML VIAL ONE (15:00)
[2019-02-24] MEDS ORDERED: Fentanyl 100 MCG/2 ML VIAL ONE (15:06)
[2019-02-24] MEDS ORDERED: Naloxone HCl 0.4 mg/ml Vial IVP PRN ×2 (16:58)
[2019-02-24] MEDS ORDERED: Lactated Ringer's 500 ML IV PRN (16:58)
[2019-02-24] MEDS ORDERED: Ondansetron PF 4 MG/2 ML Vial IVP PRN ×2 (16:58→23:03)
[2019-02-24] MEDS ORDERED: diphenhydrAMINE 50 MG/ML VIAL IVP PRN (16:58)
[2019-02-24] MEDS ORDERED: ePHEDrine/0.9% NaCl/PF SYRINGE 50 mg/10 ml SLOW IVP PRN (16:58)
[2019-02-24] MEDS ORDERED: Acetaminophen 325 MG TAB PO PRN (16:58)
[2019-02-24] MEDS ORDERED: Promethazine HCl 25 MG/ML VIAL IM PRN (16:58)
[2019-02-24] MEDS ORDERED: Fentanyl 4 mcg/Bupivacaine 0.1% Cassette 100 ML EPIDURAL SCH (17:00)
[2019-02-24] MEDS ORDERED: NS / Oxytocin 40 units/1000ml 1,000 ML ONE (21:55)
[2019-02-24] MEDS: NS / Oxytocin 40 units/1000ml 1,000 ML IV SCH (23:00)
[2019-02-24] MEDS ORDERED: Lanolin Ointment 7 GM TUBE TOP PRN (23:03)
[2019-02-24] MEDS ORDERED: HYDROcodone/Acetaminophen 5/325 mg Tablet PO PRN ×2 (23:03)
[2019-02-24] MEDS ORDERED: Preparation H Ointment 28 GM TUBE PR PRN (23:03)
[2019-02-24] MEDS ORDERED: Benzocaine-Menthol 82.5 ML CAN TOP PRN (23:03)
[2019-02-24] MEDS ORDERED: Bisacodyl 10 MG SUPP PR PRN (23:03)
[2019-02-24] MEDS ORDERED: Milk Of Magnesia 30 ML UDCUP PO PRN (23:03)
[2019-02-25] MEDS: NS / Oxytocin 40 units/1000ml 1,000 ML IV SCH (01:00)
[2019-02-25] MEDS: Communication Order-Pharmacy FS SCH ×2 (01:49→17:33)
[2019-02-25] MEDS: Lactated Ringer's 1,000 ML IV SCH ×3 (01:49→08:43)
[2019-02-25] MEDS: Penicillin G 2.5 MILL.units 2.5 MILL.UNITS in Premix Bag 1 BAG IVPB SCH (01:50)
[2019-02-25] MEDS: Ibuprofen 800 MG TAB PO SCH ×3 (05:42→21:22)
[2019-02-25] MEDS: Ferrous Sulfate 325 MG TAB PO SCH ×2 (08:39→17:33)
[2019-02-25] MEDS: Docusate Calcium (SURFAK) 240 MG CAP PO SCH ×2 (08:40→21:23)
[2019-02-25] MEDS: Prenatal Vitamin 1 TAB PO SCH (08:40)
[2019-02-25] MEDS ORDERED: Adacel (T-DAP) 0.5 ML SYRINGE IM ONE (09:00)
[2019-02-25 21:54] LABS: Chlam.trachomatis by PCR,Urine Not Detected (NotDetected)
[2019-02-26] MEDS: Lactated Ringer's 1,000 ML IV SCH ×2 (06:23→13:57)
[2019-02-26] MEDS: Ibuprofen 800 MG TAB PO SCH ×2 (06:24→13:57)
[2019-02-26 08:30] VITALS: BP 108/60; TEMP 98.4
[2019-02-26] MEDS: Docusate Calcium (SURFAK) 240 MG CAP PO SCH (08:41)
[2019-02-26] MEDS: Prenatal Vitamin 1 TAB PO SCH (08:41)
[2019-02-26] MEDS: Ferrous Sulfate 325 MG TAB PO SCH ×2 (08:46→16:22)
[2019-02-26] MEDS: Communication Order-Pharmacy FS SCH (17:34)
== END 2019-02-26 18:20 | disposition home or self-care (01) | DRG 807 ==
LOC: L&D 05:58 → 3SW 02-25 01:19
PROVIDERS: ADMIT Obstetrics & Gynecology; ATTEND Obstetrics & Gynecology
PROC: 10907ZC Drainage of Amniotic Fluid, Therapeutic from Products of Conception, Via Natural or Artificial Opening (ICD-10-PCS; principal; 2019-02-24)
PROC: 10E0XZZ Delivery of Products of Conception, External Approach (ICD-10-PCS; 2019-02-24)
PROC: 3E033VJ Introduction of Other Hormone into Peripheral Vein, Percutaneous Approach (ICD-10-PCS; 2019-02-24)
DX: O99.824 Streptococcus B carrier state complicating childbirth (principal); Z37.0 Single live birth; Z3A.39 39 weeks gestation of pregnancy
CPT/HCPCS: 36415; 85027; 85461; 86780; 86850; 86900; 86901; 87340; 87491; 87591; 90384; 96372; J2405; J2540; J2590; J3010